=== PATIENT | male | born 1950 | race Caucasian/White ===

== ENCOUNTER 2019-02-26 09:07 | Day surgery (SDC) | payer OTHER ==
[2019-02-25 11:47] LABS: BASOPHILS % (AUTO) 0.7 % (0-1); EOSINOPHILS # (AUTO) 0.1 X10'3 (0-0.9); EOSINOPHILS % (AUTO) 1.1 % (0-6); HEMATOCRIT 47.9 % (42.0-52.0); HEMOGLOBIN 15.9 g/dl (14.0-17.9); LYMPHOCYTES # (AUTO) 2.1 X10'3 (1.1-4.8); LYMPHOCYTES % (AUTO) 32.6 % (21-51); MEAN CORPUSCULAR HEMOGLOBIN 28.7 PG (27.0-31.0); MEAN CORPUSCULAR HGB CONC 33.2 g/dL (33.0-36.5); MEAN CORPUSCULAR VOLUME 86.6 FL (78-98); MEAN PLATELET VOLUME 8.6 FL (7.4-10.4); MONOCYTES # (AUTO) 0.5 X10'3 (0-0.9); MONOCYTES % (AUTO) 7.8 % (2-12); NEUTROPHILS # (AUTO) 3.7 X10'3 (1.8-7.7); NEUTROPHILS % (AUTO) 57.8 % (42-75); PLATELET COUNT 169 X10'3 (140-440); RED BLOOD COUNT 5.53 X10'6 (4.70-6.10); WHITE BLOOD COUNT 6.3 X10'3 (4.5-11.0)
[2019-02-25 12:01] LABS: PARTIAL THROMBOPLASTIN TIME 27 SECONDS (22-32)
[2019-02-25 12:02] LABS: ALANINE AMINOTRANSFERASE 41 U/L (12-78); ALBUMIN 3.6 G/DL (3.4-5.0); ALKALINE PHOSPHATASE 68 IU/L (46-116); ANION GAP 8 (8-16); ASPARTATE AMINO TRANSFERASE 17 U/L (10-37); BILIRUBIN,TOTAL 0.4 MG/DL (0.1-1.0); BLOOD UREA NITROGEN 22 MG/DL (7-18); BUN/CREATININE RATIO 23.9 (5.4-32.0); CALCIUM 8.5 MG/DL (8.5-10.1); CHLORIDE 104 MMOL/L (99-107); CREATININE 0.92 MG/DL (0.60-1.10); GLUCOSE 326 MG/DL (70-104); POTASSIUM 4.4 MMOL/L (3.5-5.1); SODIUM 137 MMOL/L (135-145); TOTAL CARBON DIOXIDE 24.6 MMOL/L (24-32); TOTAL PROTEIN 7.1 G/DL (6.4-8.2); eGFR 82 ML/MIN
[2019-02-26] VITALS (12 sets, daily range): BP systolic 125–161; BP diastolic 58–94
[~2019-02-26] VITALS: Ht 180.3 cm; Wt 113.8 kg
[2019-02-26] MEDS ORDERED: nitroGLYCERIN 0.4mg SUBLingual tab SL PRN (09:40)
[2019-02-26] MEDS ORDERED: normal saline 1,000 ML IV SCH (09:40)
[2019-02-26] MEDS ORDERED: LORazepam 0.5 MG tablet PO PRN (09:40)
[2019-02-26] MEDS ORDERED: diphenhydrAMINE 25mg capsule PO PRN (09:40)
[2019-02-26] MEDS ORDERED: MESSAGE TO PHARMACY PO ONE (09:45)
[2019-02-26] MEDS ORDERED: dextrose ORAL solution 15 GM/59 ML bottle PO PRN ×2 (09:45)
[2019-02-26] MEDS ORDERED: dextrose 50%-water 50ml dispensing syringe IV PRN ×2 (09:45)
[2019-02-26] MEDS ORDERED: insulin Lispro (HumaLOG) vial - multi-dose SQ SCH (09:45)
[2019-02-26] MEDS ORDERED: glucagon, human recombinant 1mg kit SUBCUT PRN (09:45)
[2019-02-26] MEDS ORDERED: KRATOM (09:46)
[2019-02-26] MEDS ORDERED: GABA-532 PO (09:46)
[2019-02-26] MEDS ORDERED: CPAP (09:46)
[2019-02-26] MEDS ORDERED: HERBALIFE (09:46)
[2019-02-26] MEDS ORDERED: METF500T20 PO (09:46)
[2019-02-26] MEDS ORDERED: OXYC-145 PO (09:46)
[2019-02-26] MEDS ORDERED: iohexol 350 MG/ML 50ML vial IV ONE (11:04)
[2019-02-26] MEDS ORDERED: fentaNYL/PF 50MCG/1 ML 2ML syringe ONE (11:04)
[2019-02-26] MEDS ORDERED: LIDOcaine 1% (10mg/ml)w/preservative injection 20ml MDV ONE (11:04)
[2019-02-26] MEDS ORDERED: midazolam 2 mg/2 ml injection ONE ×2 (11:04→11:40)
[2019-02-26] MEDS ORDERED: iohexol 350MG/ML 100ml bottle IV ONE (11:04)
[2019-02-26] MEDS ORDERED: proCHLORperazine 10 MG/2 ml inj IV PRN (12:45)
[2019-02-26] MEDS ORDERED: HYDROcodone/acetaminophen 10/325mg tab PO PRN (12:45)
[2019-02-26] MEDS ORDERED: OXAZEpam 15mg capsule PO PRN (12:45)
[2019-02-26] MEDS ORDERED: HYDROcodone/acetaminophen 5mg/325mg tablet PO PRN (12:45)
[2019-02-26] MEDS ORDERED: normal saline 1000ml 1,000 ML IV ONE (12:45)
[2019-02-26] MEDS ORDERED: ondansetron/PF 4mg/2ml inj IV PRN (12:45)
[2019-02-26 19:45] LABS: HEMOGLOBIN A1C 10.3 % (4.5-6.2)
[2019-02-26] MEDS ORDERED: insulin glargine (Lantus) pen - multi-dose SQ SCH (21:00)
== END 2019-02-26 19:10 | disposition home or self-care (01) ==
LOC: SSTAY O 09:07
PROVIDERS: ATTEND Internal Medicine Cardiovascular Disease
DX: I25.10 Atherosclerotic heart disease of native coronary artery without angina pectoris (principal); F32.9 Major depressive disorder, single episode, unspecified; F60.9 Personality disorder, unspecified; E11.9 Type 2 diabetes mellitus without complications; E78.5 Hyperlipidemia, unspecified; Z87.891 Personal history of nicotine dependence; Z79.899 Other long term (current) drug therapy; Z79.01 Long term (current) use of anticoagulants
CPT/HCPCS: 36415; 71046; 80053; 82948; 83036; 85025; 85610; 85730; 93458; 93567; 99152; 99153; C1769; J1644; J2001; J2250; J3010; J7030; Q0163; Q9967; A4620; A6258; C1760; J1815

== ENCOUNTER 2019-03-05 11:42 | Inpatient (IN) | payer OTHER ==
[~2019-03-05] VITALS: Ht 180.3 cm; Wt 114.6 kg
[2019-03-05] VITALS (15 sets, daily range): BP systolic 134–203; BP diastolic 64–96
[~2019-03-05 11:42] MED LIST: CPAP; GABA-532 PO; HERBALIFE; KRATOM; LIDOcaine 1% (10mg/ml)w/preservative injection 20ml MDV ONE; METF500T20 PO; OXYC-145 PO; fentaNYL/PF 50MCG/1 ML 2ML syringe ONE; heparin 1,000 UNITS/NS 500ml 500 ML ONE; iohexol 350 MG/ML 50ML vial IV ONE; iohexol 350MG/ML 100ml bottle IV ONE; midazolam 2 mg/2 ml injection ONE
[2019-03-05] MEDS ORDERED: CLOP75TA15 PO (11:59)
[2019-03-05] MEDS ORDERED: TRAM50TA2 PO (11:59)
[2019-03-05] MEDS ORDERED: ASPI-1265 PO (11:59)
[2019-03-05] MEDS ORDERED: normal saline 1,000 ML IV SCH (12:00)
[2019-03-05] MEDS ORDERED: nitroGLYCERIN 0.4mg SUBLingual tab SL PRN ×2 (12:00→14:30)
[2019-03-05] MEDS ORDERED: glucagon, human recombinant 1mg kit SUBCUT PRN (12:00)
[2019-03-05] MEDS ORDERED: LORazepam 0.5 MG tablet PO PRN (12:00)
[2019-03-05] MEDS ORDERED: MESSAGE TO PHARMACY PO ONE (12:00)
[2019-03-05] MEDS ORDERED: dextrose ORAL solution 15 GM/59 ML bottle PO PRN ×2 (12:00)
[2019-03-05] MEDS ORDERED: dextrose 50%-water 50ml dispensing syringe IV PRN ×2 (12:00)
[2019-03-05] MEDS ORDERED: diphenhydrAMINE 25mg capsule PO PRN (12:00)
[2019-03-05] MEDS ORDERED: tirofiban 12.5mg in NS 250mL 250 ML IV ONE (12:36)
[2019-03-05] MEDS ORDERED: fentaNYL/PF 50MCG/1 ML 2ML syringe ONE (12:36)
[2019-03-05] MEDS ORDERED: heparin 1,000unit/ml 10ml vial 10 ML ONE (12:36)
[2019-03-05] MEDS ORDERED: midazolam 2 mg/2 ml injection ONE ×3 (12:36→13:07)
[2019-03-05] MEDS ORDERED: iohexol 350 MG/ML 50ML vial IV ONE (13:02)
[2019-03-05] MEDS ORDERED: nitroGLYCERIN-Tridil 50MG/D5W 250 ML IV ONE (13:07)
[2019-03-05] MEDS ORDERED: clopidogrel 300mg tablet ONE (13:17)
[2019-03-05] MEDS ORDERED: aspirin 325mg tablet ONE (13:25)
--- NOTE | 2019-03-05 14:00 | NUR ---
Patient arrived to 2046 in stable condition and attached to monitors. Sheath site CDI and without hematoma. Patient given call light and oriented to room with instructions to call for assistance
[2019-03-05] MEDS ORDERED: aspirin 81mg tab.chew PO ONE (14:30)
[2019-03-05] MEDS ORDERED: HYDROcodone/acetaminophen 10/325mg tab PO PRN ×2 (14:40)
[2019-03-05] MEDS ORDERED: morphine 4 MG/ML inj SYRINge IV PRN (14:40)
[2019-03-05] MEDS ORDERED: proCHLORperazine 10 MG/2 ml inj IV PRN (14:40)
[2019-03-05] MEDS ORDERED: acetaminophen 325mg tablet PO PRN (14:40)
[2019-03-05] MEDS ORDERED: magnesium hydroxide 30ml (MOM) UD suspension PO PRN (14:40)
[2019-03-05] MEDS ORDERED: cyclobenzaprine 10mg tablet PO PRN (14:40)
[2019-03-05] MEDS ORDERED: morphine 10mg/ml inj. IV PRN (14:40)
[2019-03-05] MEDS: normal saline 1000ml 1,000 ML IV SCH ×3 (15:02→22:00)
[2019-03-05] MEDS: tirofiban 12.5mg in NS 250mL 250 ML IV SCH ×2 (15:06→20:52)
--- NOTE | 2019-03-05 15:45 | NUR ---
Dr Marvin notified of BP 160-180. Orders to try serax, norco, flexeril. Also ok to give dose of norvasc early if needed
[2019-03-05] MEDS: OXAZEpam 15mg capsule PO PRN (15:46)
[2019-03-05] MEDS ORDERED: clopidogrel 300mg tablet PO ONE (18:00)
[2019-03-05 19:58] LABS: BASOPHILS % (AUTO) 0.8 % (0-1); EOSINOPHILS # (AUTO) 0.1 X10'3 (0-0.9); EOSINOPHILS % (AUTO) 2.5 % (0-6); HEMATOCRIT 43.4 % (42.0-52.0); HEMOGLOBIN 14.5 g/dl (14.0-17.9); LYMPHOCYTES # (AUTO) 2.2 X10'3 (1.1-4.8); LYMPHOCYTES % (AUTO) 40.2 % (21-51); MEAN CORPUSCULAR HEMOGLOBIN 28.9 PG (27.0-31.0); MEAN CORPUSCULAR HGB CONC 33.5 g/dL (33.0-36.5); MEAN CORPUSCULAR VOLUME 86.3 FL (78-98); MONOCYTES # (AUTO) 0.4 X10'3 (0-0.9); MONOCYTES % (AUTO) 8.1 % (2-12); NEUTROPHILS # (AUTO) 2.7 X10'3 (1.8-7.7); NEUTROPHILS % (AUTO) 48.4 % (42-75); PLATELET COUNT 172 X10'3 (140-440); RED BLOOD COUNT 5.03 X10'6 (4.70-6.10); RED CELL DISTRIBUTION WIDTH 13.8 % (11.5-14.5); WHITE BLOOD COUNT 5.6 X10'3 (4.5-11.0)
[2019-03-05] MEDS ORDERED: metoprolol succinate 25mg (24-HOUR) SR. Tablet PO SCH (20:00)
[2019-03-05] MEDS: docusate sod 100mg capsule PO SCH (20:02)
[2019-03-05] MEDS: traMADol 50MG tablet PO SCH (20:02)
[2019-03-05] MEDS: insulin Lispro (HumaLOG) vial - multi-dose SQ SCH ×2 (20:07→22:01)
[2019-03-05] MEDS ORDERED: insulin glargine (Lantus) pen - multi-dose SQ SCH (21:00)
[2019-03-06] VITALS (16 sets, daily range): BP systolic 125–177; BP diastolic 59–75
[2019-03-06] MEDS: traMADol 50MG tablet PO SCH ×2 (01:30→08:16)
[2019-03-06 03:43] LABS: BASOPHILS # (AUTO) 0.1 X10'3 (0-0.2); EOSINOPHILS # (AUTO) 0.2 X10'3 (0-0.9); EOSINOPHILS % (AUTO) 2.9 % (0-6); HEMATOCRIT 42.3 % (42.0-52.0); HEMOGLOBIN 14.3 g/dl (14.0-17.9); LYMPHOCYTES # (AUTO) 2.2 X10'3 (1.1-4.8); LYMPHOCYTES % (AUTO) 38.2 % (21-51); MEAN CORPUSCULAR HEMOGLOBIN 29.3 PG (27.0-31.0); MEAN CORPUSCULAR HGB CONC 33.9 g/dL (33.0-36.5); MEAN CORPUSCULAR VOLUME 86.6 FL (78-98); MEAN PLATELET VOLUME 9.1 FL (7.4-10.4); MONOCYTES # (AUTO) 0.5 X10'3 (0-0.9); MONOCYTES % (AUTO) 9.3 % (2-12); NEUTROPHILS # (AUTO) 2.8 X10'3 (1.8-7.7); NEUTROPHILS % (AUTO) 48.6 % (42-75); PLATELET COUNT 165 X10'3 (140-440); RED BLOOD COUNT 4.88 X10'6 (4.70-6.10); WHITE BLOOD COUNT 5.7 X10'3 (4.5-11.0)
[2019-03-06 04:02] LABS: ANION GAP 10 (8-16); BLOOD UREA NITROGEN 15 MG/DL (7-18); BUN/CREATININE RATIO 19.2 (5.4-32.0); CHLORIDE 106 MMOL/L (99-107); CREATININE 0.78 MG/DL (0.60-1.10); GLUCOSE 192 MG/DL (70-104); POTASSIUM 3.9 MMOL/L (3.5-5.1); SODIUM 139 MMOL/L (135-145); TOTAL CARBON DIOXIDE 23.4 MMOL/L (24-32)
[2019-03-06 04:03] LABS: ALBUMIN 3.1 G/DL (3.4-5.0); CALCIUM 7.8 MG/DL (8.5-10.1); CHOL/HDL RATIO 5.5 (0.00-4.99); CHOLESTEROL 187 MG/DL (0-200); HDL CHOLESTEROL 34 MG/DL (35-60); LDL CHOLESTEROL 123 MG/DL (50-100); TRIGLYCERIDES 161 MG/DL (20-135); eGFR > 90 ML/MIN
[2019-03-06] MEDS: normal saline 1000ml 1,000 ML IV SCH (07:10)
--- NOTE | 2019-03-06 07:30 | NUR ---
Sheath removed by [employer]. angioseal placed. Dressing CDI and without hematoma
[2019-03-06] MEDS ORDERED: atorvastatin 10mg tablet PO SCH (08:00)
[2019-03-06] MEDS ORDERED: ticagrelor 90mg tablet PO SCH (08:00)
[2019-03-06] MEDS ORDERED: clopidogrel 75mg tablet PO SCH (08:00)
[2019-03-06] MEDS ORDERED: amLODIPine 2.5mg tablet PO SCH (08:00)
[2019-03-06] MEDS ORDERED: metFORMIN 500mg tablet PO SCH (08:00)
[2019-03-06] MEDS ORDERED: metoprolol succinate 25mg (24-HOUR) SR. Tablet PO SCH (08:00)
[2019-03-06] MEDS: docusate sod 100mg capsule PO SCH (08:15)
[2019-03-06] MEDS: OXAZEpam 15mg capsule PO PRN (08:16)
[2019-03-06] MEDS ORDERED: aspirin 81mg tab.chew PO SCH (08:30)
[2019-03-06] MEDS: insulin Lispro (HumaLOG) vial - multi-dose SQ SCH (09:07)
--- NOTE | 2019-03-06 13:24 | NUR ---
MD at bedside to evaluate patient. Orders to discharge after patient walks at 1400
[2019-03-06] MEDS ORDERED: ASPI-611 PO ×2 (13:35→13:46)
[2019-03-06] MEDS ORDERED: AMLO2.5T2 PO ×2 (13:35→13:46)
[2019-03-06] MEDS ORDERED: CLOP75TA33 PO (13:35)
[2019-03-06] MEDS ORDERED: ATOR10TA70 PO (13:35)
[2019-03-06] MEDS ORDERED: CLOP75TA15 PO (13:46)
[2019-03-06] MEDS ORDERED: ATOR10TA PO (13:46)
--- NOTE | 2019-03-06 15:01 | NUR ---
Patient disconnected self from monitor and states he is getting ready to go. Put back on monitor to walk; patient did great 350ft
--- NOTE | 2019-03-06 15:30 | NUR ---
IV removed with cannula intact. Patient educated on all medications, warning signs and symptoms, and follow up care; all questions answered.
--- NOTE | 2019-03-06 15:37 | NUR ---
discharged to home by private vehicle- ambulates well
== END 2019-03-06 15:37 | disposition home or self-care (01) | DRG 247 ==
LOC: SSTAY O 11:42 → ICU 2S 15:16
PROVIDERS: ADMIT Internal Medicine Cardiovascular Disease; ATTEND Internal Medicine Cardiovascular Disease
PROC: 027035Z Dilation of Coronary Artery, One Artery with Two Drug-eluting Intraluminal Devices, Percutaneous Approach (ICD-10-PCS; principal; 2019-03-05)
DX: I25.10 Atherosclerotic heart disease of native coronary artery without angina pectoris (principal); I24.8 Other forms of acute ischemic heart disease; I10 Essential (primary) hypertension; F41.1 Generalized anxiety disorder; E78.5 Hyperlipidemia, unspecified; Z91.14 Patient's other noncompliance with medication regimen; Z87.891 Personal history of nicotine dependence
CPT/HCPCS: 36415; 80048; 80061; 82948; 83036; 85025; 99152; 99153; A4620; A5120; A6258; A6449; C1760; C1769; C1874; C9600; G0378; J1644; J1815; J2001; J2250; J3010; J3246; J3490; J7030; J7040; Q0163; Q9967

== ENCOUNTER 2023-10-23 13:33 | Observation (INO) | payer MEDICARE, BC ==
[~2023-10-23] VITALS: Ht 182.9 cm; Wt 109.8 kg
[~2023-10-23 13:33] MED LIST changes: +AMLO2.5T2 PO; +ASPI-1265 PO; +ASPI-611 PO; +ATOR10TA PO; +CLOP75TA15 PO; -GABA-532 PO; -HERBALIFE; -KRATOM; -LIDOcaine 1% (10mg/ml)w/preservative injection 20ml MDV ONE; +METF-900 PO; -METF500T20 PO; -OXYC-145 PO; +TRAM50TA2 PO; -fentaNYL/PF 50MCG/1 ML 2ML syringe ONE; -heparin 1,000 UNITS/NS 500ml 500 ML ONE; -iohexol 350 MG/ML 50ML vial IV ONE; -iohexol 350MG/ML 100ml bottle IV ONE; -midazolam 2 mg/2 ml injection ONE
[2023-10-23 13:51] LABS: BASOPHILS # (AUTO) 0.1 X10'3 (0-0.2); BASOPHILS % (AUTO) 1.1 % (0-1); EOSINOPHILS # (AUTO) 0.1 X10'3 (0-0.9); EOSINOPHILS % (AUTO) 1.6 % (0-6); HEMATOCRIT 46.6 % (42.0-52.0); HEMOGLOBIN 15.6 g/dl (14.0-17.9); LYMPHOCYTES # (AUTO) 2.6 X10'3 (1.1-4.8); LYMPHOCYTES % (AUTO) 37.1 % (21-51); MEAN CORPUSCULAR HEMOGLOBIN 29.4 PG (27.0-31.0); MEAN CORPUSCULAR HGB CONC 33.4 g/dL (33.0-36.5); MEAN PLATELET VOLUME 9.1 FL (7.4-10.4); MONOCYTES # (AUTO) 0.5 X10'3 (0-0.9); MONOCYTES % (AUTO) 7.4 % (2-12); NEUTROPHILS # (AUTO) 3.7 X10'3 (1.8-7.7); NEUTROPHILS % (AUTO) 52.8 % (42-75); PLATELET COUNT 177 X10'3 (140-440); RED CELL DISTRIBUTION WIDTH 13.9 % (11.5-14.5); WHITE BLOOD COUNT 7.1 X10'3 (4.5-11.0)
[2023-10-23 14:03] LABS: ALANINE AMINOTRANSFERASE 30 U/L (12-78); ALBUMIN 3.5 G/DL (3.4-5.0); ALBUMIN/GLOBULIN RATIO 0.9 (1.1-1.5); ALKALINE PHOSPHATASE 72 IU/L (46-116); ANION GAP 9 (8-16); ASPARTATE AMINO TRANSFERASE 16 U/L (10-37); BILIRUBIN,TOTAL 0.5 MG/DL (0.1-1.0); BLOOD UREA NITROGEN 24 MG/DL (7-18); BUN/CREATININE RATIO 25.3 (10.0-20.0); CALCIUM 9.1 MG/DL (8.5-10.1); CHLORIDE 103 MMOL/L (99-107); CREATININE 0.95 MG/DL (0.60-1.10); GLUCOSE 239 MG/DL (70-104); POTASSIUM 4.4 MMOL/L (3.5-5.1); SODIUM 137 MMOL/L (135-145); TOTAL PROTEIN 7.2 G/DL (6.4-8.2); eGFR 78 ML/MIN
[2023-10-23 14:10] LABS: PRO BRAIN NATRIURETIC PEPTIDE 83 PG/ML (0-125)
[2023-10-23] MEDS ORDERED: nitroGLYCERIN 0.4mg SUBLingual tab SL PRN (15:05)
[2023-10-23] MEDS ORDERED: ondansetron/PF 4mg/2ml inj IV PRN (15:15)
[2023-10-23] MEDS ORDERED: mag hydrox/Alum hydrox/simeth 30ml oral suspension PO PRN (15:15)
[2023-10-23] MEDS ORDERED: acetaminophen 325mg tablet PO PRN ×2 (15:15)
[2023-10-23] MEDS ORDERED: magnesium hydroxide 30ml (MOM) UD suspension PO PRN (15:15)
[2023-10-23] MEDS ORDERED: morphine 2 MG/ML inj. syringe IV PRN ×2 (15:15)
[2023-10-23] MEDS: mag hydrox/Alum hydrox/simeth 30ml oral suspension PO ONE (15:24)
[2023-10-23] MEDS: LIDOcaine 2% Viscous 15ml cup MM ONE (15:24)
[2023-10-23] MEDS: famotidine/PF 10 mg/ml inj IV ONE (15:24)
[2023-10-23] MEDS: aspirin 81mg tab.chew PO ONE (15:24)
[2023-10-23] MEDS ORDERED: LANTUS SQ (18:07)
[2023-10-23] MEDS ORDERED: NOVLG SQ (18:07)
[2023-10-23] MEDS ORDERED: EMPA25TA PO (18:07)
[2023-10-23] MEDS ORDERED: pantoprazole 40mg Tablet.DR PO SCH (18:10)
[2023-10-23] MEDS ORDERED: metoclopramide 10mg tablet PO PRN (18:10)
[2023-10-23] MEDS ORDERED: [UNRECOGNIZED DRUG - OTHER] PO (18:30)
[2023-10-23] MEDS ORDERED: [UNRECOGNIZED DRUG - CODE] PO (18:30)
[2023-10-23] MEDS ORDERED: TUMERIC PO (18:30)
[2023-10-23] MEDS ORDERED: [UNRECOGNIZED DRUG - OTHER] (18:30)
[2023-10-23] MEDS ORDERED: MULT-1085 PO (18:30)
[2023-10-23] MEDS ORDERED: MAGN400C PO (18:30)
[2023-10-23] MEDS ORDERED: VITAMIN B PO (18:30)
[2023-10-23] MEDS ORDERED: [UNRECOGNIZED DRUG - OTHER] PO (18:30)
[2023-10-23] MEDS ORDERED: FISH OIL PO (18:30)
[2023-10-23] MEDS ORDERED: LACT1CAP65 PO (18:30)
[2023-10-23] MEDS: docusate sod 100mg capsule PO SCH (20:21)
[2023-10-23] MEDS: traMADol 50MG tablet PO SCH (20:22)
[2023-10-23 21:40] VITALS: RESP 18; O2SAT 97
[2023-10-23 22:00] VITALS: BP 150/89; PULSE 77; RESP 18; TEMP 98.4; O2SAT 96
[2023-10-24 02:00] VITALS: BP 142/80; PULSE 62; RESP 18; TEMP 98.4; O2SAT 95
[2023-10-24 06:00] VITALS: BP 137/81; PULSE 61; RESP 21; TEMP 97.7; O2SAT 99
[2023-10-24 06:15] LABS: BASOPHILS # (AUTO) 0.1 X10'3 (0-0.2); EOSINOPHILS # (AUTO) 0.2 X10'3 (0-0.9); EOSINOPHILS % (AUTO) 2.2 % (0-6); HEMATOCRIT 43.8 % (42.0-52.0); HEMOGLOBIN 14.6 g/dl (14.0-17.9); LYMPHOCYTES # (AUTO) 2.9 X10'3 (1.1-4.8); LYMPHOCYTES % (AUTO) 41.3 % (21-51); MEAN CORPUSCULAR HEMOGLOBIN 29.4 PG (27.0-31.0); MEAN CORPUSCULAR HGB CONC 33.4 g/dL (33.0-36.5); MEAN CORPUSCULAR VOLUME 87.9 FL (78-98); MEAN PLATELET VOLUME 9.2 FL (7.4-10.4); MONOCYTES # (AUTO) 0.6 X10'3 (0-0.9); MONOCYTES % (AUTO) 9.2 % (2-12); NEUTROPHILS # (AUTO) 3.2 X10'3 (1.8-7.7); NEUTROPHILS % (AUTO) 46.3 % (42-75); PLATELET COUNT 157 X10'3 (140-440); RED BLOOD COUNT 4.99 X10'6 (4.70-6.10); RED CELL DISTRIBUTION WIDTH 14.1 % (11.5-14.5)
[2023-10-24 06:24] LABS: ALBUMIN 3.2 G/DL (3.4-5.0); ANION GAP 8 (8-16); BLOOD UREA NITROGEN 21 MG/DL (7-18); BUN/CREATININE RATIO 24.1 (10.0-20.0); CALCIUM 8.5 MG/DL (8.5-10.1); CHLORIDE 105 MMOL/L (99-107); CREATININE 0.87 MG/DL (0.60-1.10); GLUCOSE 173 MG/DL (70-104); SODIUM 138 MMOL/L (135-145); eCRCL 83 ML/MIN; eGFR 86 ML/MIN
[2023-10-24 08:00] VITALS: RESP 21; O2SAT 99
[2023-10-24] MEDS: EMPAGLIFLOZIN 25 MG TABLET PO SCH (08:49)
[2023-10-24] MEDS: pantoprazole 40mg Tablet.DR PO SCH (08:54)
[2023-10-24] MEDS: insulin glargine (Lantus) pen - multi-dose SQ SCH (09:01)
[2023-10-24] MEDS ORDERED: METO10TA3 PO (09:33)
[2023-10-24] MEDS ORDERED: PANT40TA54 PO (09:33)
[2023-10-24 11:00] VITALS: BP 116/53; PULSE 90; RESP 16; TEMP 98.2; O2SAT 97
== END 2023-10-24 13:30 | disposition home or self-care (01) ==
LOC: ER 13:33 → ED HOLD 15:17 → INTOOBSV 15:17 → PCU 3S 21:22
PROVIDERS: ADMIT Internal Medicine; ATTEND Internal Medicine
DX: K21.9 Gastro-esophageal reflux disease without esophagitis (principal); R07.89 Other chest pain; I25.10 Atherosclerotic heart disease of native coronary artery without angina pectoris; I10 Essential (primary) hypertension; E11.9 Type 2 diabetes mellitus without complications; I24.9 Acute ischemic heart disease, unspecified; I25.2 Old myocardial infarction; Z79.4 Long term (current) use of insulin; Z79.84 Long term (current) use of oral hypoglycemic drugs; Z96.643 Presence of artificial hip joint, bilateral; Z79.899 Other long term (current) drug therapy
CPT/HCPCS: 36415; 71045; 80048; 80053; 82948; 83880; 84484; 85025; 93005; 96374; 99285; G0378; J1815; J3490; A6250